=== PATIENT | female | born 1985 | race Caucasian/White ===

== ENCOUNTER 2023-08-22 07:11 | Emergency (ER) | payer OTHER, SELFPAY ==
[2023-08-22] VITALS (10 sets, daily range): BP systolic 93–138; BP diastolic 58–99; PULSE 75–98; RESP 13–20; TEMP 36.9; O2SAT 93–97
--- NOTE | 2023-08-22 08:00 | ED.ALCOHOL ---
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 she was had a nice restaurant, had 2 drinks with friends with dinner, she has a 2 drink limit for driving. The counter waitress/waiter came up asked if she wanted a 3rd drink, her friend that she was with stated she would drive her home. She did have the 3rd drink. She does not remember the drive home does not remember events last night. She states she still feels intoxicated but has had nothing to drink for about 12 hours now. She is just feeling unusual. She does know it is August, it is a wears 2020 for, is correct on events in dates around her. She is here with her . She had a few sniffles earlier this week but is not had any known illness. She does feel like she has a slight headache, dizzy and nausea, did vomit twice prior to arrival. She does wonder if she might need a banana bag. Reviewed with her that we give those to alcoholics because they have nutritional deficiencies typically as they do not eat adequately. She may need IV fluids but do not feel she needs the banana bag. We certainly can give her some oral vitamins once her nausea is controlled. She states she was at a nice restaurant, does not believe there is a chance for ingestion of inadvertent substances. Did review with her that GHB and rohypnol can be used and can cause symptoms such as this but we have no test here for that. We can do serum send out which is really not going to change our management. Last drink: hours (ago) Chronic alcohol use: No Previous visits for alcohol intoxication: No Associated symptoms: nausea and vomiting Related Data Home Medications Medication Instructions Recorded Confirmed fexofenadine 180 mg tablet 180 mg PO DAILY 08/22/23 08/22/23 (Fatemeh Allergy) sertraline 100 mg tablet 100 mg PO DAILY 08/22/23 08/22/23 Previous Rx's Medication Instructions Recorded ondansetron 4 mg disintegrating 4 mg PO Q6H PRN nausea and 08/22/23 tablet vomiting #20 tabs Allergies Allergy/AdvReac Type Severity Reaction Status Date / Time No Known Allergies Allergy Verified 08/22/23 07:33 Review of Systems Status of ROS Reports: 6 or more systems reviewed and unremarkable except as noted in History and below PFSH PFSH Social History Smoking Status: Never smoker Do you use any of these nicotine containing products: None How often do you have a drink containing alcohol: monthly or less AUDIT-C Alcohol total score: 1 Non-prescribed substance use: denies use Exam Const: Vital Signs, click to edit/add: Vital Signs - 24 hr 08/22/23 07:22 Temperature 98.4 F Pulse Rate [Pulse Oximeter] 90 Respiratory Rate 18 Blood Pressure [Ri ght Upper Arm] 130/82 Pulse Oximetry 97 Oxygen Delivery Me thod Room Air This 38-year-old female is very pleasant, able to converse normally. Sclera clear, pupils equal round, gaze conjugate. Symmetrical facial function. Lips not cracked or dry. Lungs are clear, good air entry, no wheezing crackles. CV regular rate and rhythm, no murmur, normal S1-S2, no S3-S4. Abdomen is soft, nontender nondistended. Patient was ambulatory into the ED of her own accord. Moving arms and legs normally. Note no tremors. Documenting provider has reviewed patient's vital signs: yes Course Course ED Course: Dr. Schwab had ordered labs and testing, patient came in near change of shift; agree with her orders and will add on if any indication. patient will receive a L of normal saline, 4 mg IV Zofran. We will make sure that her anion gap is normal, consider possibility that she could be coming down with prodromal symptoms from viral etiology such as COVID or influenza. Testing is ordered. Did discuss head CT imaging with this patient and I personally do not think it is going to be beneficial, she is neurologically intact. She agrees and declines. I doubt that this is an episode of transient global amnesia, probably has something to do with the alcohol, perhaps even could have been slipped unknown ingested substance which did cause the significant intoxication. Reevaluation(s) Time of Reevaluation #1: 09:46 Reevaluation #1: Patient has completed 1 L of normal saline, still has not urinated. Will order a 2 L of LR. Reviewed labs. There is nothing overtly concerning on her labs, anion gap is normal. She did get Toradol for her headache. She is still feeling dizzy. Will proceed with 2 L of fluids and see how she responds. Time of Reevaluation #2: 11:26 Reevaluation #2: Patient receiving her lactated Ringer's, she is currently sleeping. Vital Signs Vital signs: Initial Vital Signs Temperature 98.4 F 08/22/23 07:22 Temperature Source Temporal Artery Scan 08/22/23 07:22 Pulse Rate 90 08/22/23 07:22 Respiratory Rate 18 08/22/23 07:22 Blood Pressure 130/82 08/22/23 07:22 Blood Pressure Mean 98 08/22/23 07:22 Pulse Oximetry 97 08/22/23 07:22 Oxygen Delivery Method Room Air 08/22/23 07:22 Vital Signs Temperature 98.4 F 08/22/23 07:22 Pulse Rate 90 08/22/23 07:22 Respiratory Rate 18 08/22/23 07:22 Blood Pressure 130/82 08/22/23 07:22 Pulse Oximetry 97 08/22/23 07:22 Oxygen Delivery Method Room Air 08/22/23 07:22 Temperature 98.4 F 08/22/23 07:22 Pulse Rate 90 08/22/23 07:22 Respiratory Rate 18 08/22/23 07:22 Blood Pressure 130/82 08/22/23 07:22 Pulse Oximetry 97 08/22/23 07:22 Oxygen Delivery Method Room Air 08/22/23 07:22 Medications Administered Medications: Discontinued Medications Generic Name Dose Route Start Last Admin Trade Name Freq PRN Reason Stop Dose Admin Sodium Chloride 1,000 mls @ 1,000 mls/hr 08/22/23 07:40 08/22/23 10:28 0.9 % Sodium Chloride 1000 Ml IV 08/22/23 08:39 Infused .Q1H MANUEL Infusion Lactated Ringer's 1,000 mls @ 1,000 mls/hr 08/22/23 09:45 08/22/23 10:27 Lactated Ringers 1000 Ml IV 08/22/23 10:44 1,000 mls/hr .Q1H ONE Administration Ketorolac Tromethamine 15 mg 08/22/23 09:00 08/22/23 09:17 Ketorolac 15 Mg/Ml Inj IVP 08/22/23 09:01 15 mg ONCE ONE Administration Ondansetron HCl 4 mg 08/22/23 07:39 08/22/23 08:22 Ondansetron 2 Mg/Ml Inj IVP 08/22/23 07:40 4 mg ONCE ONE Administration MDM - Alcohol Lab Data Labs: Lab Results 08/22/23 08/22/23 08/22/23 Range/Units 07:39 08:05 08:32 WBC 8.79 (4.50-11.00) K/uL RBC 4.81 (4.00-5.20) m/uL Hgb 14.1 (12.0-16.0) gm/dL Hct 43.2 (33.0-51.0) % MCV 90 (80-100) fL MCH 29 (26-34) pg MCHC 33 (32-36) gm/dL RDW Coeff of Diego 12.4 (11.5-15.5) % Plt Count 201 (140-440) K/uL Neut % (Auto) 80.8 H (42.0-72.0) % Lymph % (Auto) 13.5 L (20-44) % [place] % (Auto) 4.9 (0.0-11.0) % Eos % (Auto) 0.5 (0.0-7.0) % Baso % (Auto) 0.1 (0.0-3.0) % Neut # (Auto) 7.10 H (1.7-7.0) K/uL Lymph # (Auto) 1.20 (0.90-2.90) K/uL [place] # (Auto) 0.40 (0.00-0.90) K/UL Eos # (Auto) 0.04 (0.00-0.50) K/uL Baso # (Auto) 0.01 (0.00-0.30) K/uL Abs Immat Gran (auto) 0.02 (0.00-0.30) K/uL Imm/Tot Granulo (auto) 0.2 % Sodium 141 (135-149) mmol/L Potassium 5.0 (3.6-5.1) mmol/L Chloride 109 (96-114) mmol/L Carbon Dioxide 21 (20-32) mmol/L Anion Gap 11 (7-15) mEq/L BUN 15 (5-24) mg/dL Creatinine 0.5 (0.5-1.5) mg/dL Estimated Creat Clear 135.93 Estimated GFR 122 ml/min Glucose 101 (60-115) mg/dL Calcium 8.9 (8.4-10.6) mg/dL Magnesium 2.0 (1.5-2.6) mg/dL Total Bilirubin 0.9 (0.1-1.5) mg/dL AST 46 H (12-35) U/L ALT 30 (4-35) U/L Alkaline Phosphatase 58 (40-150) U/L Total Protein 8.8 H (6.0-8.3) g/dL Albumin 5.0 (3.3-5.0) g/dL Ethyl Alcohol 0.05 H (0.01-0.03) % SARS-CoV-2 (PCR) Negative SARS-CoV-2 (Negative) Influenza Type A (PCR) Negative PCR FLU A (Negative) Influenza Type B (PCR) Negative PCR FLU B (Negative) RSV (PCR) Negative PCR RSV (Negative) Lab Acknowledgement New Spec Needed POC Troponin I 0.00 L (0.01-0.04) ng/ml 08/22/23 Range/Units 10:30 WBC (4.50-11.00) K/uL RBC (4.00-5.20) m/uL Hgb (12.0-16.0) gm/dL Hct (33.0-51.0) % MCV (80-100) fL MCH (26-34) pg MCHC (32-36) gm/dL RDW Coeff of Diego (11.5-15.5) % Plt Count (140-440) K/uL Neut % (Auto) (42.0-72.0) % Lymph % (Auto) (20-44) % [place] % (Auto) (0.0-11.0) % Eos % (Auto) (0.0-7.0) % Baso % (Auto) (0.0-3.0) % Neut # (Auto) (1.7-7.0) K/uL Lymph # (Auto) (0.90-2.90) K/uL [place] # (Auto) (0.00-0.90) K/UL Eos # (Auto) (0.00-0.50) K/uL Baso # (Auto) (0.00-0.30) K/uL Abs Immat Gran (auto) (0.00-0.30) K/uL Imm/Tot Granulo (auto) % Sodium (135-149) mmol/L Potassium (3.6-5.1) mmol/L Chloride (96-114) mmol/L Carbon Dioxide (20-32) mmol/L Anion Gap (7-15) mEq/L BUN (5-24) mg/dL Creatinine (0.5-1.5) mg/dL Estimated Creat Clear Estimated GFR ml/min Glucose (60-115) mg/dL Calcium (8.4-10.6) mg/dL Magnesium (1.5-2.6) mg/dL Total Bilirubin (0.1-1.5) mg/dL AST (12-35) U/L ALT (4-35) U/L Alkaline Phosphatase (40-150) U/L Total Protein (6.0-8.3) g/dL Albumin (3.3-5.0) g/dL Ethyl Alcohol (0.01-0.03) % SARS-CoV-2 (PCR) (Negative) Influenza Type A (PCR) (Negative) Influenza Type B (PCR) (Negative) RSV (PCR) (Negative) Lab Acknowledgement Test Added POC Troponin I (0.01-0.04) ng/ml ECG Data Attestation: I personally reviewed and interpreted this ECG as follows: (Normal sinus rhythm, 87 beats per minute. QT corrected 474 milliseconds.) ECG interpretation date: 08/22/23 ECG interpretation time: 08:02 Discharge Plan Discharge Clinical Impression: Dizziness Headache Qualifiers: Headache type: unspecified Nausea & vomiting Qualifiers: Vomiting type: unspecified Qualified Code(s): R11.2 - Nausea with vomiting, unspecified Patient Disposition: Home, Self-Care Condition: Stable Instructions: Acute Nausea and Vomiting (ED) Additional Instructions: Rest today, stay hydrated with small frequent sips of fluids. Can advance your diet to solid foods as you feel ready to eat. Seek re-evaluation if you have further concerns. I do think that your symptoms were very likely from ingestion of alcohol. My hope is that you will continue to feel better throughout the day. Activity Level: Activity as Tolerated Discharge Diet: Regular Prescriptions: New ondansetron 4 mg tablet,disintegrating 4 mg PO Q6H PRN (Reason: nausea and vomiting) Qty: 20 0RF No Action sertraline 100 mg tablet 100 mg PO DAILY fexofenadine [Fatemeh Allergy] 180 mg tablet 180 mg PO DAILY Follow Up/Referrals: Provider,Not a Local [Referring] - Stand Alone Forms: [facility] [employer] Info Instructions
[2023-08-22 08:19] LABS: Basophils Absolute Auto 0.01 K/uL (0.00-0.30); Basophils Percent Auto 0.1 % (0.0-3.0); Eosinophils Absolute Auto 0.04 K/uL (0.00-0.50); Eosinophils Percent Auto 0.5 % (0.0-7.0); Hematocrit 43.2 % (33.0-51.0); Hemoglobin* 14.1 gm/dL (12.0-16.0); Immature Granulocytes Abs Auto 0.02 K/uL (0.00-0.30); Immature Granulocytes Pct Auto 0.2 %; Lymphocytes Percent Auto 13.5 % (20-44); Mean Corpuscular HGB Conc 33 gm/dL (32-36); Mean Corpuscular Hemoglobin 29 pg (26-34); Mean Corpuscular Volume 90 fL (80-100); Monocytes Percent Auto 4.9 % (0.0-11.0); Neutrophils Percent Auto 80.8 % (42.0-72.0); Platelet Count* 201 K/uL (140-440); RDW Coefficient of Variation % 12.4 % (11.5-15.5); Red Blood Count 4.81 m/uL (4.00-5.20); White Blood Count* 8.79 K/uL (4.50-11.00)
[2023-08-22] MEDS: ONDANSETRON 2 MG/ML inj 4 MG IVP (08:22)
[2023-08-22] MEDS: 0.9 % SODIUM CHLORIDE 1000 ml 1,000 ML IV (08:23)
[2023-08-22 08:24] LABS: Slide Review Reflex No
[2023-08-22 08:33] LABS: Lab Add On Test New Spec Needed
[2023-08-22 08:36] LABS: Chloride* 109 mmol/L (96-114)
[2023-08-22 08:37] LABS: Sodium* 141 mmol/L (135-149)
[2023-08-22 08:39] LABS: Anion Gap 11 mEq/L (7-15); Carbon Dioxide* 21 mmol/L (20-32); Creatinine* 0.5 mg/dL (0.5-1.5); Est. Creatinine Clearance* 135.93; Estimated Glomerular Filt Rate 122 ml/min
[2023-08-22 08:40] LABS: Alanine Aminotransferase* 30 U/L (4-35); Alkaline Phosphatase* 58 U/L (40-150); Bilirubin Total* 0.9 mg/dL (0.1-1.5); Blood Urea Nitrogen* 15 mg/dL (5-24); Calcium* 8.9 mg/dL (8.4-10.6); Glucose* 101 mg/dL (60-115)
[2023-08-22 08:44] LABS: Aspartate Amino Transferase* 46 U/L (12-35); Total Protein* 8.8 g/dL (6.0-8.3)
[2023-08-22] MEDS: KETOROLAC 15 MG/ML inj IVP (09:17)
[2023-08-22 09:18] LABS: PCR FLU A Negative PCR FLU A (Negative); PCR FLU B Negative PCR FLU B (Negative); PCR RSV Negative PCR RSV (Negative); SARS PCR* Negative SARS-CoV-2 (Negative)
[2023-08-22] MEDS: LACTATED RINGERS 1000 ML 1,000 ML IV (10:27)
[2023-08-22 10:50] LABS: Ethanol* 0.05 % (0.01-0.03)
[2023-08-22 13:06] LABS: Ur HCG Qualitative* Negative (Negative)
[2023-08-22 13:09] LABS: Appearance Urine Clear (Clear); Bilirubin Urine Negative (Negative); Blood Urine Negative (Negative); Color Urine Yellow (Yellow); Glucose Urine Negative (Negative); Ketones Urine Negative (Negative); Leukocyte Esterase Urine Negative (Negative); Nitrite Urine Negative (Negative); Protein Urine Negative (Negative); Specific Gravity Urine 1.025 (1.000-1.030); Urobilinogen Urine 0.2 (0.2-1.0)
[2023-08-22 13:22] LABS: Bacteria Urine Many; Mucus Urine Moderate; RBC Urine 0-2 (0-2); Squamous Epithelial Cell Urine Many (None-Few)
== END 2023-08-22 12:56 | disposition home or self-care (01) ==
PROVIDERS: Family Medicine; Emergency Provider Family Medicine; PCP Obstetrics & Gynecology
DX: R11.2 Nausea with vomiting, unspecified (principal); R42 Dizziness and giddiness
CPT/HCPCS: 36415; 80053; 81001; 81025; 82077; 83735; 84484; 85025; 87086; 87631; 96374; 96375; 99284; J1885; J2405; J7030; J7120

== ENCOUNTER 2024-03-26 13:00 | Outpatient (CLI) | payer OTHER, SELFPAY ==
--- NOTE | 2024-03-26 13:00 | CRLHL7_ITS ---
For Patients: As a result of the Century Cures Act, medical imaging exams and procedure reports are released immediately into your electronic medical record. You may view this report before your referring provider. If you have questions, please contact your health care provider. BILATERAL SCREENING MAMMOGRAM WITH COMPUTER-AIDED DETECTION AND TOMOSYNTHESIS TECHNIQUE: CC and MLO views were obtained. These mammographic images have been obtained using full-field digital technique. These mammographic images were interpreted with the benefit of computer-aided detection. Breast Tomosynthesis was used in this interpretation. COMPARISON FILM: Baseline. FINDINGS: The breasts are heterogeneously dense, which may obscure small masses. IMPRESSION: There is no radiographic evidence for malignancy. ASSESSMENT: BI-RADS Category 2: Benign RECOMMENDATION: Routine screening mammogram in 1 year. A lay language report of this examination will be provided to the patient. Ector Hawthorne M.D. Diagnostic Radiologist [email or web address] SP/Dictated by: Ector Hawthorne MD @ 04/01/2024 10:46:00 AM (Electronically Signed)
--- OUTSIDE RECORDS SUMMARY | 2024-03-26 13:04 | XMS_ITS | Clinical Summary ---
Author Organization [facility] Address [address] [place] [address] Care Team Providers Care Blank Driller Name Role Phone Unassigned, Provider Primary Care Provider Unava ilable Source Comments You are receiving this document as you are listed as the primary care provider,follow-up provider, or the patient has been referred to you for consultation.This is in compliance with the Medicare and[facility] EHR Incentive Program,which states Providers who transition their patient to another setting of careor provider of care or refers their patient to another provider of care shouldprovide summary care record for each transition of care or referral. [facility] No known active allergies Medications Medication Sig Dispensed Refills Start Date End Date Status CLARITIN-D 24 HOUR 10-240 MG OR TB24 Take by mouth. 0 11/12/2004 Act shanta BENADRYL 25 MG OR TABS Reported on 08/07/2016 03/03/2007 Active levonorgestrel (MIRENA) 20 MCG/24HR IUD 20 mcg by Intrauterine route. Active mometasone (ELOCON) 0.1 % ointment Apply topically daily. 08/02/2021 Active hydrOXYzine HCl (ATARAX) 25 MG tabletIndications:A nxiety and depression (HRC) Take 1 Tablet (25 mg) by mouth every 8 hours as needed for Anxiety. 30 Tablet 2 05/23/2023 Active sertraline (ZOLOFT) 100 MG tabletIndications:A nxiety and depression (HRC) Take 1 Tablet (100 mg) by mouth daily. 90 Tablet 3 05/23/2023 Active triamcinolone acetonide (KENALOG) 0.1 % ointmentIndications :Eczema, unspecified type Apply topically two times a day. 80 g 11 07/15/2023 Active Active Problems Problem Noted Date Diagnosed Date Anxiety and depression 12/15/2021 History of abnormal cervical Pap smear 9 Overview (12/14/2021): 2371-3077 NILM 2008 LSIL, insuff colpo 2009 NILM 08/2010 LSIL, HPV pos 03/2011 LSIL > 04/2011 colpo CIN1/CIN2 10/2011 LSIL > 12/2011 CIN1 08/2012 HPV pos 03/2014 LSIL, HPV pos 09/2015 NILM, HPV pos 08/2017 NILM, HPV neg History of 05/31/2019 Abnormality of cervix 06/16/2018 Overview (12/14/2021): Noted to have clefts at 12 and 9 o'clock on external cervix at visit - ?cervical lacerations 05/31/19- Per Denblayne's note --?cervical lacerations - discussed possible screening for cervical length for next although no mention in op note of cervical extension (although was difficult extraction requiring vaginal hand). - Cervical length 4.2 cm on intake us - HR rounds- plan for CL measurements? 06/16/2019: Reviewed with Dr. Alba at HR rounds, no need for cervical length US. Other intervertebral disc displacement, lumbar r egion 04/10/2015 Overview (12/14/2021): Left sided 04-17-2015 lumbar laminectomy/discetomy, Dr Flores [facility] Left sided 04-17-2015 lumbar laminectomy/discetomy, Dr Flores [facility] Overview: Overview: Left sided 04-17-2015 lumbar laminectomy/discetomy, Dr Flores [facility] Lactose intolerance 08/09/2010 Overview (08/09/2010): Since around 2007 Paroxysmal supraventricular tachycardia 02/28/20 09 Overview (03/14/2014): 08/09/2010 holter showed some SVT, Now about once a month still gets crushing chest pain and pulse 120 at rest 03/14/2014 no symptoms now for over two years Screening for cervical cancer 07/11/2008 Overview (06/23/2023): EPITHELIAL CELL ABNORMALITIES colp done : Benign endocervical type epithelium. insufficient squamous epithelium to correlate with Papanicolaou test PAP normal 08/2010 LSIL, HPV positive 03/2011 LSIL [place] - ANA 1-2- not treated 10/2011 LSIL [place] - ANA 1 2012 ASCUS, HPV positive [place] - HPV changes, no ANA 03/2014 LSIL, HPV positive [place] - ANA 1 2015 NILM, Positive for High Risk HPV types other than 16 or 18 > COLP: NO ANA 30 y.o. [place] path: No ANA 2017 NILM, HPV neg 32 y.o. 2021 NILM, HPV neg 2022 NILM, HPV neg Plan per ASCCP guidelines: pap with HPV co-test in 3 years (05/2026) Eczema 08/18/2007 Allergic rhinitis 03/03/2007 Overview (02/18/2008): See allergy appointment multiple Attention deficit disorder 12/06/2004 Overview (05/23/2023): 08/09/2010 follows with Behavioral health periodically, but has had not problems for some years, meds are stable and working with concerta 18 mg, needs ritalin very rarely; 03/14/2014: stable on daily concerta and very rarely ritalin. 06/27/2016: currently doing well off medications for over 2 years 05/23/2023: remains stable off medications Mitral valve disease 05/28/2004 Overview (05/23/2023): trace mitral valve regurge with minimally thickened valve, mild tricuspid regurg on echo predental antibiotics Stable on echo ; no longer needs predental antibiotics due to change in guidelines.; echo stable. Repeat in 3-5 years; echo read as normal. Had ECHO in 2019 with trace mitral insufficiency and trace tricuspid insufficiency. Reasonable to repeat again in 2024. Epic trace mitral valve regurge with minimally thickened valve, mild tricuspid regurg on echo predental antibiotics Stable on echo ; no longer needs predental antibiotics due to change in guidelines.; echo stable. Repeat in 3-5 years; echo read as normal. Overview: trace mitral valve regurge with minimally thickened valve, mild tricuspid regurg on echo predental antibiotics Stable on echo ; no longer needs predental antibiotics due to change in guidelines.; echo stable. Repeat in 3-5 years; echo read as normal. Contraceptive surveillance 04/09/2004 Overview (03/09/2015): Epic Resolved Problems Problem Noted Date Diagnosed Date Resolved Date Parvovirus infection, maternal, antepartum 10/14/2019 12/14/2021 Overview (12/14/2021): 10/13: Appropriate interval growth.Estimated weight is appropriate for gestational age. ??Normal amniotic fluid volume. Normal middle cerebral artery Doppler indices (performed for risk of anemia). Hx of pre-eclampsia, prior p regnancy, currently 07/21/2019 12/14/2021 Rubella non-immune status, antepartum 10/01/2017 12/14/2021 Overview (12/14/2021): 06/01/19- recheck at EOB or offer PP vaccine Concussion without loss of consciousness 06/27/2016 06/27/2016 Overview (06/27/2016): 11-08-2014 06/27/2016 symptoms completely resolved by 01-23-2015 Chronic left SI joint pain 03/14/2014 0 09/30/2015 Overview (03/14/2014): onset early december 2013 Humerus head fracture 09/26/20092013 Overview (03/25/2011): Originally bailed off a horse at a gallop ;08/09/10 new injury ( rotator cuff tear, hockey injury), Right shoulder, seeing PT and orthopedics Dr Hartmann Asthma 01/13/2006 06/27/2016 Overview (06/27/2016): Exercise induced while doing sports 06/27/2016 more than 6 years since any symptoms Major depressive disorder, r ecurrent episode, in full remission 04/21/2002 01/13/2006 Immunizations Name Administration Dates Next Due 4vHPV (Gardasil) 04/03/2007,11/18/2006, 7 DTP 04/25/1989, 6,1984,1984,1984 DTaP 02/24/2018,01/13/2006 Flu Vac (18-64 Yrs), Intradermal 06/20/2011 Flu Vac (3+ yrs) 04/09/2011,02/21/2009, 7 [id number] 05/30/2009 H1n1 Miv Novartis 4+ Yr Trac e Preservative (Injected) 05/30/2009 HepB Ped/Adol (0-18 yrs) 06/08/1996,02/11/1996,0 12/02/1995 Hib (HbOC) 03/11/1986 Influenza IIV4 (Quadrivalent ) 0.5mL (51496) 03/28/2020,03/02/2018 Influenza aIIV3 65+ Years (Fluad) 05/09/2023 Influenza, Unspecified Formulation 03/02,03/09/2016,03/11/2014,2009 MMR 01/01/2020, 8,11/01/2011,1995,07/26/1985 MPSV4 (Menomune) 01/13/2003 Moderna COVID-19 12+ 05/23/2023 OPV, Trivalent (Orimune or tOPV) 989,12/31/1985,1984,1983 OPV, Unspecified Formulation 04/25/1989, 12/31/1985,1984,1983 PPSV23 (Pneumovax) 01/13/2003 Pfizer Monovalent 12+ Purple Top 03/28/2021,06/09,06/03/2020 TB Skin Test (PPD) 01/20/2006,11/12/2004 Td 02/11/1996 Td (7+ yrs) 06/27/2016 Td, Preservative Free 06/27/2016 Tdap 10/14/2019,02/24/2018,01/13/2006 Family History * Patient is adopted Medical History Relation Name Comments Other Other yakut adopted as an -biological pat gm breast cancer Relation Name Status Comments Other Paternal Grandfather in a wa r in [place] Paternal Grandmother breast cancer Social History Tobacco Use Types Packs/Day Years Used Date Smoking Tobacco: Never Smokeless Tobacco: Never Tobacco Cessation:Counseling Given: Not Answered Alcohol Use Standard Drinks/Week Comments Yes 0 (1 standard drink = 0.6 oz pur e alcohol) about once a week, weekend PHQ-2 Answer Date Recorded PHQ-2 Score 5 05/23/2023 Financial Resource Strain Answer Date R ecorded Is it hard for you to pay fo r the very basics like food, housing, medical care or heating? No 05/22/2023 Food Insecurity Answer Date Recorded Does your food run out before you have the money to buy more? No 05/22/2023 Transportation Needs Answer Date Record ed Does a lack of transportatio n keep you from your medical appointments or from getting your medications? No 023 Sex and Gender Information Value Date Recorded Sex Assigned at Not on file Gender Identity Not on file Sexual Orientation Not on file Last Filed Vital Signs Vital Sign Reading Time Taken Comments Blood Pressure 136/85 05/23/2023 10:37 AM ACETYLENE TORCH SOLDERER Pulse 84 05/23/2023 10:37 AM ACETYLENE TORCH SOLDERER Temperature 36.3 ??C (97.4 ??F) 04/16/2022 9:44 AM CS T Pt reported Respiratory Rate 16 11/11/2018 12:33 PM CDT Oxygen Saturation 97% 11/11/2018 12:33 PM CDT Inhaled Oxygen Concentration - - Weight 85.3 kg (188 lb) 05/23/2023 10:37 AM ACETYLENE TORCH SOLDERER Height 167.6 cm (5' 6) 05/23/2023 10:37 AM ACETYLENE TORCH SOLDERER Body Mass Index 30.34 05/23/2023 10:37 AM ACETYLENE TORCH SOLDERER Plan of Treatment Health Maintenance Due Date Last Done Comments Diabetes Screening- (based on age and BMI) 1984 Hep C Screening (Preventive Services) 1984 Mammogram 1984 COVID-19 Vaccine ( season) 2024 05/23/2023, 04/28/2022, 03/28/2021, Additional history exists Influenza (#1) 2024 05/09/2023, 04/10, 03/28/2020, Additional history exists Adult Preventive Visit 05/23/2025 , 08/12/2017, 09/29/2015, Additional history exists Cervical Cancer Screening 05/23/20262022, 08/12/2017, 06/27/2016 (Completed), Additional history exists DTaP/Tdap/Td (13 - Tdap) 10/13/2029 020, 02/24/2018, 02/24/2018, Additional history exists Zoster/Shingles (1 of 2) 02/28/2034 Hib Completed 03/11/1986 IPV (Polio) Completed 04/25/1989, 04/09, 12/31/1985, Additional history exists HepB Completed 06/08/1996, 09/1995, 12/02/1995 MCV4 Aged Out 01/13/2003 No longer eligi ble based on patient's age to complete this topic Pneumococcal Aged Out 01/13/2003 No longer eligi ble based on patient's age to complete this topic HPV Vaccine Completed 04/03/2007, 11/07, 09/15/2006 HIV Screening (Preventive Services) Completed 06/27/2016 HepA Aged Out No longer eligi ble based on patient's age to complete this topic RSV Aged Out No longer eligi ble based on patient's age to complete this topic Procedures Procedure Name Priority Date/Time Associated Diagnosis Comments PAP TEST Routine 05/23/2023 11:20 AM ACETYLENE TORCH SOLDERER Screening for malignant neoplasm of cervix HIV 1/2 AG/AB 4TH GEN Routine 06/27/2016 10:24 AM ACETYLENE TORCH SOLDERER Screening for human immunodeficiency virus from Last 3 Months or Most Recently Relevant to Health Maintenance Results * PAP Test (05/23/2023 11:20 AM ACETYLENE TORCH SOLDERER) Case Report Pap ? Case: [id number] ? Authorizing Provider: ??Corinne Woodson, Collected: ? 05/23/2023 1120 ? MD, PhD ? Ordering Location: ? [facility] ? Received: ?05/23/2023 1149 ? [facility] [place] ? First Screen: ?Deedee Hassan ? Specimen: ?Pap Test, Routine, Cervix/Endocervix ? 06/14/2023 12:56 PM ACETYLENE TORCH SOLDERER [facility] Pap Specimen Adequacy Satisfactory for evaluation, endocervical/back sformation zone component absent. 06/14/2023 12:56 PM ACETYLENE TORCH SOLDERER [facility] Pap Interpretation (NILM) Negative for intraepithelial lesion or malignancy. 06/14/2023 12:56 PM ACETYLENE TORCH SOLDERER [facility] Pap Disclaimer The Pap test is a screening test to aid in the detection of cervical and vaginal cancers and their precursor lesions. It is not a diagnostic procedure and should not be used as the sole means of detecting malignancy. Both false-positive and false-negative results may occur. 06/14/2023 12:56 PM ACETYLENE TORCH SOLDERER [facility] Gross Description The specimen is received in SurePath fixative and properly labeled. 1 Pap-stained SurePath slide is prepared. 06/14/2023 12:56 PM ACETYLENE TORCH SOLDERER [facility] Embedded Images 12:56 PM ACETYLENE TORCH SOLDERER [facility] Other Specimen Type ENTIRE ENDOCERVIX / Unknown 05/23/2023 11:20 AM ACETYLENE TORCH SOLDERER 05/23/2023 11:49 AM ACETYLENE TORCH SOLDERER Comment:LMP: No LMP recorded (lmp unknown). (Menstrual status: IUD). Corinne Woodson MD, PhD LAB [facility] Performing Organization Address City/State/[facility] Co de Phone Number [facility] [address] * HIV 1/2 Ag/Ab 4th Generation (06/27/2016 10:24 AM ACETYLENE TORCH SOLDERER) HIV 1/2 AG/AB 4thGEN Negative (Non Reactive) [facility]GNR [facility] Comment:HIV-1 p24 Ag and HIV -1/HIV-2 Ab not detected. 06/27/2016 10:2 4 AM ACETYLENE TORCH SOLDERER 06/27/2016 10:26 AM ACETYLENE TORCH SOLDERER Narrative [facility] - 06/27/2016 3:23 PM ACETYLENE TORCH SOLDERER Performed at [facility], [address], [place], [place] ??[address] Evelyn Alvarado MD LAB_1 [facility] [phone] from Last 3 Months or Most Recently Relevant to Health Maintenance Advance Directives * No Code Status (Latest Code Status on File) Date Activated Date Inactivated Comments 12/01/2004 12:03 AM 12/01/2004 12:03 AM Care Teams Blank Driller Relationship Specialty Start Date End Date Unassigned, Provider [address] [place] [address] PCP - General 08/21/23
--- OUTSIDE RECORDS SUMMARY | 2024-03-26 13:04 | XMS_ITS | Encounter Summary ---
Author Organization [facility] Address [address] [place] [address] Care Team Providers Care Advertising Writer Name Role Phone Unassigned, Provider Primary Care Provider Unava ilable Encounter Details Date Type Department Care Team (Late st Contact Info) Description 06/11/2019 Outside Hospital External to [facility] HISTORY PHYSICAL Social History Tobacco Use Types Packs/Day Years Used Date Smoking Tobacco: Never Smokeless Tobacco: Never Alcohol Use Standard Drinks/Week Comments No 0 (1 standard drink = 0.6 oz pur e alcohol) about once a week, weekend Sex and Gender Information Value Date Recorded Sex Assigned at Not on file Gender Identity Not on file Sexual Orientation Not on file documented as of this encounter Plan of Treatment Not on file documented as of this encounter Visit Diagnoses Not on filedocumented in this encounter Care Teams Advertising Writer Relationship Specialty Start Date End Date Unassigned, Provider [address] [place] [address] PCP - General 08/21/23 documented as of this encounter
--- OUTSIDE RECORDS SUMMARY | 2024-03-26 13:05 | XMS_ITS | Encounter Summary ---
Author Organization [facility] Address [address] [place] [address] Care Team Providers Care Shock Absorber Installer Name Role Phone Unassigned, Provider Primary Care Provider Unava ilable Encounter Details Date Type Department Care Team (Latest Contact Info) Description 09/28/1998 Orders Only Chuck Acuna MD Social History Tobacco Use Types Packs/Day Years Used Date Smoking Tobacco: Never Assessed Sex and Gender Information Value Date Recorded Sex Assigned at Not on file Gender Identity Not on file Sexual Orientation Not on file documented as of this encounter Plan of Treatment Not on file documented as of this encounter Visit Diagnoses Not on filedocumented in this encounter Care Teams Shock Absorber Installer Relationship Specialty Start Date End Date Unassigned, Provider [address] [place] [address] PCP - General 08/21/23 documented as of this encounter
--- OUTSIDE RECORDS SUMMARY | 2024-03-26 13:05 | XMS_ITS | Encounter Summary ---
Author Organization [facility] Address [address] [place] [address] Care Team Providers Care Chief Commercial Officer Name Role Phone Unassigned, Provider Primary Care Provider Unava ilable Encounter Details Date Type Department Care Team (Late st Contact Info) Description 04/01/2014 Correspondence [facility] [address] [place] [id number] Radiology, Provider MRI SAFETY SHEET AND COMPATIBILITY FORM Social History Tobacco Use Types Packs/Day Years Used Date Smoking Tobacco: Never Smokeless Tobacco: Never Alcohol Use Standard Drinks/Week Comments Yes 2.5 (1 standard drink = 0.6 oz p ure alcohol) about once a week, weekend Sex and Gender Information Value Date Recorded Sex Assigned at Not on file Gender Identity Not on file Sexual Orientation Not on file documented as of this encounter Plan of Treatment Not on file documented as of this encounter Visit Diagnoses Not on filedocumented in this encounter Care Teams Chief Commercial Officer Relationship Specialty Start Date End Date Unassigned, Provider [address] [place] [address] PCP - General 08/21/23 documented as of this encounter
--- OUTSIDE RECORDS SUMMARY | 2024-03-26 13:05 | XMS_ITS | Encounter Summary ---
Author Organization [facility] Address [address] [place] [address] Care Team Providers Care State Editor Name Role Phone Unassigned, Provider Primary Care Provider Unava ilable Encounter Details Date Type Department Care Team (Latest Contact Info) Description 08/18/1995 Orders Only Marlin Bingham MD Social History Tobacco Use Types Packs/Day Years Used Date Smoking Tobacco: Never Assessed Sex and Gender Information Value Date Recorded Sex Assigned at Not on file Gender Identity Not on file Sexual Orientation Not on file documented as of this encounter Plan of Treatment Not on file documented as of this encounter Visit Diagnoses Not on filedocumented in this encounter Care Teams State Editor Relationship Specialty Start Date End Date Unassigned, Provider [address] [place] [address] PCP - General 08/21/23 documented as of this encounter
--- OUTSIDE RECORDS SUMMARY | 2024-03-26 13:05 | XMS_ITS | Encounter Summary ---
Author Organization [facility] Address [address] [place] [address] Care Team Providers Care High Lift Driver Name Role Phone Unassigned, Provider Primary Care Provider Unava ilable Encounter Details Date Type Department Care Team (Late st Contact Info) Description 06/14/2012 Correspondence [facility] [address] [place] [address] Evelyn Alvarado MD [address] [place] [address] [place] [address] PRIOR AUTH FORM Social History Tobacco Use Types Packs/Day Years Used Date Smoking Tobacco: Never Smokeless Tobacco: Never Alcohol Use Standard Drinks/Week Comments Yes 4.2 (1 standard drink = 0.6 oz p ure alcohol) about once a week, weekend Sex and Gender Information Value Date Recorded Sex Assigned at Not on file Gender Identity Not on file Sexual Orientation Not on file documented as of this encounter Progress Notes * Evelyn Alvarado MD - 06/14/2012 12:00 AM CST DER AND CHIEF EXECUTIVE OFFICER documented in this encounter Plan of Treatment Not on file documented as of this encounter Visit Diagnoses Not on filedocumented in this encounter Care Teams High Lift Driver Relationship Specialty Start Date End Date Unassigned, Provider [address] [place] [address] PCP - General 08/21/23 documented as of this encounter
--- OUTSIDE RECORDS SUMMARY | 2024-03-26 13:05 | XMS_ITS | Encounter Summary ---
Author Organization [facility] Address [address] [place] [address] Care Team Providers Care Household Personal Assistant Name Role Phone Unassigned, Provider Primary Care Provider Unava ilable Encounter Details Date Type Department Care Team (Late st Contact Info) Description 07/09/2016 Outside Hospital External to [facility] Social History Tobacco Use Types Packs/Day Years Used Date Smoking Tobacco: Never Smokeless Tobacco: Never Alcohol Use Standard Drinks/Week Comments Yes 0 [...] on filedocumented in this encounter Care Teams Household Personal Assistant Relationship Specialty Start Date End Date Unassigned, Provider [address] [place] [address] PCP - General 08/21/23 documented as of this encounter
--- OUTSIDE RECORDS SUMMARY | 2024-03-26 13:05 | XMS_ITS | Encounter Summary ---
Author Organization [facility] Address [address] [place] [address] Care Team Providers Care Residential Life Director Name Role Phone Unassigned, Provider Primary Care Provider Unava ilable Encounter Details Date Type Department Care Team (Latest Contact Info) Description 10/14/1997 Orders Only Fatou Ho Social History Tobacco Use Types Packs/Day Years Used Date Smoking Tobacco: Never Assessed Sex and Gender Information Value Date Recorded Sex Assigned at Not on file Gender Identity Not on file Sexual Orientation Not on file documented as of this encounter Plan of Treatment Not on file documented as of this encounter Visit Diagnoses Not on filedocumented in this encounter Care Teams Residential Life Director Relationship Specialty Start Date End Date Unassigned, Provider [address] [place] [address] PCP - General 08/21/23 documented as of this encounter
--- OUTSIDE RECORDS SUMMARY | 2024-03-26 13:05 | XMS_ITS | Encounter Summary ---
Author Organization [facility] Address [address] [place] [address] Care Team Providers Care Corporate Licensed Broker Name Role Phone Unassigned, Provider Primary Care Provider Unava ilable Encounter Details Date Type Department Care Team (Latest Contact Info) Description 04/12/1997 Orders Only Tim Rousseau MD Social History Tobacco Use Types Packs/Day Years Used Date Smoking Tobacco: Never Assessed Sex and Gender Information Value Date Recorded Sex Assigned at Not on file Gender Identity Not on file Sexual Orientation Not on file documented as of this encounter Plan of Treatment Not on file documented as of this encounter Visit Diagnoses Not on filedocumented in this encounter Care Teams Corporate Licensed Broker Relationship Specialty Start Date End Date Unassigned, Provider [address] [place] [address] PCP - General 08/21/23 documented as of this encounter
--- OUTSIDE RECORDS SUMMARY | 2024-03-26 13:05 | XMS_ITS | Encounter Summary ---
Author Organization [facility] Address [address] [place] [address] Care Team Providers Care Supervisor Agency Appointments Name Role Phone Unassigned, Provider Primary Care Provider Unava ilable Encounter Details Date Type Department Care Team (Late st Contact Info) Description 05/04/2018 Outside Hospital External to [facility] OB HISTORY AND PHYSICAL Social History Tobacco Use Types Packs/Day [...] on filedocumented in this encounter Care Teams Supervisor Agency Appointments Relationship Specialty Start Date End Date Unassigned, Provider [address] [place] [address] PCP - General 08/21/23 documented as of this encounter
--- OUTSIDE RECORDS SUMMARY | 2024-03-26 13:05 | XMS_ITS | Encounter Summary ---
Author Organization [email or web address] Address [address] [place] [address] Care Team Providers Care Silk Screen Layout Drafter Name Role Phone Unassigned, Provider Primary Care Provider Unava ilable Encounter Details Date Type Department Care Team (Late st Contact Info) Description 10/22/2011 Correspondence [facility] [address] [facility] [place] [address] Reina Grimm APRN, GREASE PRESS HELPER [address] [place] [address] PE FORMS Social History Tobacco Use Types Packs/Day Years [...] as of this encounter Progress Notes * Reina Grimm APRN, GUL[place] - 10/22/2011 12:00 AM CDT documented in this encounter Plan of Treatment Not on file documented as of this encounter Visit Diagnoses Not on filedocumented in this encounter Care Teams Silk Screen Layout Drafter Relationship Specialty Start Date End Date Unassigned, Provider [address] [place] [address] PCP - General 08/21/23 documented as of this encounter
--- OUTSIDE RECORDS SUMMARY | 2024-03-26 13:05 | XMS_ITS | Encounter Summary ---
Author Organization [facility] Address [address] [place] [address] Care Team Providers Care Ap Operator Name Role Phone Unassigned, Provider Primary Care Provider Unava ilable Encounter Details Date Type Department Care Team (Latest Contact Info) Description 01/08/1999 Orders Only Fatou Ho Social History Tobacco [...] on filedocumented in this encounter Care Teams Ap Operator Relationship Specialty Start Date End Date Unassigned, Provider [address] [place] [address] PCP - General 08/21/23 documented as of this encounter
--- OUTSIDE RECORDS SUMMARY | 2024-03-26 13:05 | XMS_ITS | Encounter Summary ---
Author Organization [employer] Address [address] [place] [address] Care Team Providers Care Warehouse Supervisor 3Rd Shift Name Role Phone Unassigned, Provider Primary Care Provider Unava ilable Encounter Details Date Type Department Care Team (Late st Contact Info) Description 02/16/2016 Refill Order [facility] [address] [place] [address] Evelyn Alvarado MD [id number] [place] [address] Social History Tobacco Use Types Packs/Day Years [...] on file documented as of this encounter Nursing Notes * Rosalina Cordoba CMA - 02/16/2016 11:23 AM CDT Pt notified. Rosalina Cordoba CMA 02/16/2016, 11:23 AM documented in this encounter Plan of Treatment Not on file documented as of this encounter Visit Diagnoses Diagnosis Encounter for long-term (current) use of medications- Primary Encounter for long-term (current) use of other medications documented in this encounter Care Teams Warehouse Supervisor 3Rd Shift Relationship Specialty Start Date End Date Unassigned, [place] [address] PCP - General 08/21/23 documented as of this encounter
--- OUTSIDE RECORDS SUMMARY | 2024-03-26 13:05 | XMS_ITS | Encounter Summary ---
Author Organization [facility] Address [address] [place] [address] Care Team Providers Care Screen Printing Machine Loader Unloader Name Role Phone Unassigned, Provider Primary Care Provider Unava ilable Encounter Details Date Type Department Care Team (Late st Contact Info) Description 05/11/2015 [facility] [address] [place] [address] Jorge L Olguin MD [address] [place] [address] HEALTH CARE PROVIDER REPORT Social History Tobacco Use Types Packs/Day Years [...] on filedocumented in this encounter Care Teams Screen Printing Machine Loader Unloader Relationship Specialty Start Date End Date Unassigned, Provider [address] [place] [address] PCP - General 08/21/23 documented as of this encounter
--- OUTSIDE RECORDS SUMMARY | 2024-03-26 13:05 | XMS_ITS | Encounter Summary ---
Author Organization [email or web address] Address [address] [place] [address] Care Team Providers Care Childcare Provider Name Role Phone Unassigned, Provider Primary Care Provider Unava ilable Encounter Details Date Type Department Care Team (Late st Contact Info) Description 05/13/2018 Outside Hospital External to [facility] HISTORY AND PHYSICAL Social History Tobacco Use [...] on filedocumented in this encounter Care Teams Childcare Provider Relationship Specialty Start Date End Date Unassigned, Provider [address] [place] [address] PCP - General 08/21/23 documented as of this encounter
--- OUTSIDE RECORDS SUMMARY | 2024-03-26 13:05 | XMS_ITS | Encounter Summary ---
Author Organization [facility] Address [address] [place] [address] Care Team Providers Care Rug Underlay Machine Operator Name Role Phone Unassigned, Provider Primary Care Provider Unava ilable Encounter Details Date Type Department Care Team (Late st Contact Info) Description 07/09/2016 Outside Hospital External to [facility] HISTORY AND PHYSICAL Social History Tobacco Use [...] on filedocumented in this encounter Care Teams Rug Underlay Machine Operator Relationship Specialty Start Date End Date Unassigned, Provider [address] [place] [address] PCP - General 08/21/23 documented as of this encounter
--- OUTSIDE RECORDS SUMMARY | 2024-03-26 13:05 | XMS_ITS | Encounter Summary ---
Author Organization [employer] Address [address] [place] [address] Care Team Providers Care Parachute Harness Rigger Name Role Phone Unassigned, Provider Primary Care Provider Unava ilable Encounter Details Date Type Department Care Team (Late st Contact Info) Description 05/08/1999 Office Visit [facility] [address] [place] [address] Fatou Ho MD [address] [place] [address] Social History Tobacco Use Types Packs/Day Years Used Date Smoking Tobacco: Never Assessed Sex and Gender Information Value Date Recorded Sex Assigned at Not on file Gender Identity Not on file Sexual Orientation Not on file documented as of this encounter Progress Notes * Fatou Ho - 05/08/1999 12:00 AM CSTSUBJECTIVE: This is a 14-year-old young woman who presents with her mother for a complaint of headaches the past week. She has had nasal drainage and had a sore throat last week, however, she now has no more sore throat pain. She had the headache that started last Friday, i.e., 05/02, and at that time she had some sore throat and nausea, but that resolved. Patient had some nasal drainage and has been taking Tylenol Sinus medication for it. Patient states that this helps somewhat. She has taken ibuprofen up to 4 tablets at a time and she feels that ibuprofen takes of her headache. She has had a history of headaches in the past, which have felt to have been migraines. She takes Midrin for these headaches. She states that this headache she that she has had this past headache has not been migraine and she has not needed to take the Midrin. Headaches are around the forehead area. The patient identifies the area across her entire forehead. She states that she does not have a headache currently. Patient has not been blowing out her nose, but does feel that she has some postnasal drip. Patient is on Alesse oral contraceptives. The patient states that she has been somewhat tired the past week and at times has felt somewhat dizzy. She feels that the world is spinning around her and she reports that she has not lost her balance. The patient has been fatigued over the past 1 week. The patient has been eating relatively well, although she skips some breakfasts. She continues to bring her lunch to school when she does not care for the school lunch. No vomiting or diarrhea. She had some nausea, but that has resolved. No other family members are ill. OBJECTIVE: Weight: 116 pounds. Temperature: 96.4 (oral). Blood pressure: 108/78. Alert, oriented in no acute distress. Eyes: Conjunctiva not injected. Pupils equal and reactive to light. Funduscopic exam reveals sharp discs with normal pulsations. Nose: Patient has some nasal bogginess, but there is no active rhinorrhea and no erythema of the nasal mucosa. Throat: Not erythematous. No exudate or petechia. No cold lesions. No signs of cobblestoning. Tonsils only 2/5 in size. Lymph nodes: No cervical, supraclavicular or submandibular lymphadenopathy. Sinuses: No tenderness over the maxillary and frontal sinuses. Neurologic: Patient gives good contact. Patient has negative Romberg . Normal aniylf-cecn-cyyiyd. No signs of dysmetria. She has normal pkjw-yor-ljox. She has normal range of motion of the neck with flexion, extension and rotation, and abduction and adduction. Lungs: Clear to auscultation bilaterally. No rales, rhonchi or wheezes. Heart: Regular rate and rhythm. No murmur heard. Abdomen: Soft and nontender. No hepatosplenomegaly. Rapid strep screen negative. Water's x-ray of the sinuses shows no acute or chronic signs of a sinusitis and the sinuses of the maxillary, frontal and ethmoid sinuses appear clear. ASSESSMENT: This is a 14-year-old young woman with headache the past 1 week with nasal drainage and sore throat which is resolved. There is no signs of a bacterial infection at this time. The headache is probably most likely due to a viral syndrome at this time. She has had a history of headaches that were thought to be migraines, but she does not have migraines at this time. There is no signs of sinusitis at this time with no signs of cobblestoning or postnasal drip and there is no tenderness over the maxillary sinuses. A Water's view of the sinuses shows no obvious signs of sinusitis. This x-ray was done after a long discussion with patient and mother about a differential diagnosis of headache pain and the plan to observe, and we decided to go ahead with the Water's x-ray. PLAN: Check radiology results. Patient given sinusitis handout with recommendation of continuing with the ibuprofen and possibly with some Sudafed and with nasal saline irrigation. Patient will return to clinic if any worsening of symptoms. Discussed differential diagnosis of the viral syndrome which could include EBB infection, however, patient has no signs of lymphadenopathy or pharyngitis, nor any hepatosplenomegaly. I explained to mother that it was too early to take the monospot test at this time. Return to clinic if persistence of dizziness or headache. Reassured that there is no signs of a bacterial infection at this time. On our discussion of the sinusitis handout, I explained to patient and her mother that usually one will get sinusitis after having a viral URI that lasts over the usual 10-14 days if one gets a cold. X-ray was taken to rule out any sinusitis after there was a discrepancy of patient's description of the intensity of her headache and how ibuprofen did not help it. I spent 30 minutes with this patient and her mother in a long discussion of differential and plan, 25 minutes of which were spent discussing the plan and differential diagnosis. cc: Fatou Ho MD CTOR OF INTELLIGENCE documented in this encounter Plan of Treatment Not on file documented as of this encounter Visit Diagnoses Not on filedocumented in this encounter Care Teams Parachute Harness Rigger Relationship Specialty Start Date End Date Unassigned, Provider [address] [place] [address] PCP - General 08/21/23 documented as of this encounter
--- OUTSIDE RECORDS SUMMARY | 2024-03-26 13:05 | XMS_ITS | Encounter Summary ---
Author Organization [facility] Address [address] [place] [address] Care Team Providers Care Manufacturing Tech Name Role Phone Unassigned, Provider Primary Care Provider Unava ilable Encounter Details Date Type Department Care Team (Late st Contact Info) Description 04/18/2014 Correspondence [facility] [address] [place] [address] Evelyn Alvarado MD [id number] [place] [address] RX Social History Tobacco Use Types Packs/Day Years [...] on filedocumented in this encounter Care Teams Manufacturing Tech Relationship Specialty Start Date End Date Unassigned, Provider [address] [place] [address] PCP - General 08/21/23 documented as of this encounter
--- OUTSIDE RECORDS SUMMARY | 2024-03-26 13:05 | XMS_ITS | Encounter Summary ---
Author Organization [facility] Address [address] [place] [address] Care Team Providers Care Chemical Tester Name Role Phone Unassigned, Provider Primary Care Provider Unava ilable Encounter Details Date Type Department Care Team (Latest Contact Info) Description 06/08/1996 Orders Only Fatou Ho Social History Tobacco [...] on filedocumented in this encounter Care Teams Chemical Tester Relationship Specialty Start Date End Date Unassigned, Provider [address] [place] [address] PCP - General 08/21/23 documented as of this encounter
--- OUTSIDE RECORDS SUMMARY | 2024-03-26 13:05 | XMS_ITS | Encounter Summary ---
Author Organization [employer] Address [address] [place] [address] Care Team Providers Care Hall Supervisor Name Role Phone Unassigned, Provider Primary Care Provider Unava ilable Encounter Details Date Type Department Care Team (Late st Contact Info) Description 04/26/2016 Refill Order [facility] [address] [place] [address] Evelyn Alvarado MD [address] [place] [address] Social History Tobacco Use Types Packs/Day Years [...] Nursing Notes * Rosalina Cordoba CMA - 04/30/2016 8:41 AM CST Letter sent to ptEva Cordoba CMA 04/30/2016, 8:41 AM DRILLER HELPER documented in this encounter Plan of Treatment Not on file documented as of this encounter Visit Diagnoses Diagnosis Encounter for long-term (current) use of medications- Primary Encounter for long-term (current) use of other medications documented in this encounter Care Teams Hall Supervisor Relationship Specialty Start Date End Date Unassigned, Provider [address] [place] [address] PCP - General 08/21/23 documented as of this encounter
--- OUTSIDE RECORDS SUMMARY | 2024-03-26 13:05 | XMS_ITS | Encounter Summary ---
Author Organization [facility] Address [address] [place] [address] Care Team Providers Care Certified Nutritionist Name Role Phone Unassigned, Provider Primary Care Provider Unava ilable Encounter Details Date Type Department Care Team (Late st Contact Info) Description 01/23/2003 Hospital External to Unknown, Physician [address] [place] [address] [facility] Social History Tobacco Use Types Packs/Day Years [...] as of this encounter Progress Notes * Unknown, Physician - 01/23/2003 12:00 AM CDT documented in this encounter Plan of Treatment Not on file documented as of this encounter Visit Diagnoses Not on filedocumented in this encounter Care Teams Certified Nutritionist Relationship Specialty Start Date End Date Unassigned, Provider [address] [place] [address] PCP - General 08/21/23 documented as of this encounter
--- OUTSIDE RECORDS SUMMARY | 2024-03-26 13:05 | XMS_ITS | Encounter Summary ---
Author Organization [facility] Address [address] [place] [address] Care Team Providers Care Service Delivery Management Consultant Name Role Phone Unassigned, Provider Primary Care Provider Unava ilable Encounter Details Date Type Department Care Team (Late st Contact Info) Description 03/15/2014 Correspondence [facility] [address] [place] [address] [place] [address] Dion Carreon, KASI CHIROPRACTIC PT LIABILITY PAW Social History Tobacco Use Types Packs/Day Years [...] on filedocumented in this encounter Care Teams Service Delivery Management Consultant Relationship Specialty Start Date End Date Unassigned, Provider [address] [place] [address] PCP - General 08/21/23 documented as of this encounter
--- OUTSIDE RECORDS SUMMARY | 2024-03-26 13:05 | XMS_ITS | Encounter Summary ---
Author Organization [facility] Address [address] [place] [address] Care Team Providers Care Technical Customer Support Specialist Name Role Phone Unassigned, Provider Primary Care Provider Unava ilable Encounter Details Date Type Department Care Team (Latest Contact Info) Description 08/21/1999 Orders Only Tim Rousseau MD Social History [...] on filedocumented in this encounter Care Teams Technical Customer Support Specialist Relationship Specialty Start Date End Date Unassigned, Provider [address] [place] [address] PCP - General 08/21/23 documented as of this encounter
--- OUTSIDE RECORDS SUMMARY | 2024-03-26 13:05 | XMS_ITS | Encounter Summary ---
Author Organization [facility] Address [address] [place] [address] Care Team Providers Care Food Sampler Name Role Phone Unassigned, Provider Primary Care Provider Unava ilable Encounter Details Date Type Department Care Team (Late st Contact Info) Description 07/20/2012 Correspondence [facility] [address] [place] [address] Evelyn Alvarado MD [address] [place] [address] PRIOR AUTH Social History Tobacco Use Types Packs/Day Years [...] Progress Notes * Evelyn Alvarado MD - 07/20/2012 12:00 AM CST documented in this encounter Plan of Treatment Not on file documented as of this encounter Visit Diagnoses Not on filedocumented in this encounter Care Teams Food Sampler Relationship Specialty Start Date End Date Unassigned, Provider [address] [place] [address] PCP - General 08/21/23 documented as of this encounter
--- OUTSIDE RECORDS SUMMARY | 2024-03-26 13:05 | XMS_ITS | Encounter Summary ---
Author Organization [facility] Address [address] [place] [address] Care Team Providers Care Pawn Shop Keeper Name Role Phone Unassigned, Provider Primary Care Provider Unava ilable Encounter Details Date Type Department Care Team (Late st Contact Info) Description 03/15/2014 Correspondence [facility] [address] [place] [address] [place] [address] Dion Carreon, KASI CHIROPRACTIC PT LIABILITY PAW [...] on filedocumented in this encounter Care Teams Pawn Shop Keeper Relationship Specialty Start Date End Date Unassigned, Provider [address] [place] [address] PCP - General 08/21/23 documented as of this encounter
--- OUTSIDE RECORDS SUMMARY | 2024-03-26 13:05 | XMS_ITS | Encounter Summary ---
Author Organization [facility] Address [address] [place] [address] Care Team Providers Care Mop Maker Name Role Phone Unassigned, Provider Primary Care Provider Unava ilable Encounter Details Date Type Department Care Team (Late st Contact Info) Description 12/28/2014 Correspondence [facility] [address] [place] [address] Radiology, Provider MRI SAFETY SHEET AND COMPATIBILITY [...] on filedocumented in this encounter Care Teams Mop Maker Relationship Specialty Start Date End Date Unassigned, Provider [address] [place] [address] PCP - General 08/21/23 documented as of this encounter
== END 2024-03-26 13:01 | disposition home or self-care (01) ==
PROVIDERS: PCP Registered Nurse; Visit Provider Registered Nurse
DX: Z12.31 Encounter for screening mammogram for malignant neoplasm of breast (principal); R92.333 Mammographic heterogeneous density, bilateral breasts
CPT/HCPCS: 77063; 77067